=== PATIENT | male | born 1950 | race Two or more races ===

== ENCOUNTER → 2024-04-05 | Outpatient (CLI) | payer MEDICARE, MEDICAID, SELFPAY | END | disposition home or self-care (01) | LOC: SWHD 11:04 | PROVIDERS: PCP Family Medicine; Referring Provider Family Medicine; Visit Provider Student in an Organized Health Care Education/Training Program | DX: I96 Gangrene, not elsewhere classified (principal); S88.011A Complete traumatic amputation at knee level, right lower leg, initial encounter; S91.105A Unspecified open wound of left lesser toe(s) without damage to nail, initial encounter; L89.620 Pressure ulcer of left heel, unstageable; X58.XXXA Exposure to other specified factors, initial encounter; J44.9 Chronic obstructive pulmonary disease, unspecified; R60.0 Localized edema; Z72.0 Tobacco use; I10 Essential (primary) hypertension | CPT/HCPCS: 97597; A9270 ==

== ENCOUNTER 2024-07-20 13:53 | Emergency (ER) | payer MEDICARE, MEDICAID, SELFPAY ==
[2024-07-20 13:54] VITALS: BMI 20.9
[2024-07-20 14:06] VITALS: BP 160/70; PULSE 78; RESP 18; TEMP 36.9; O2SAT 99
--- NOTE | 2024-07-20 14:21 | XR_ITS ---
Examination: Foot, left, 3 views Technique: AP, oblique, lateral views foot, 3 views Date and time of exam: July 20, 2024 1458 hours INDICATIONS: Redness swelling and pain necrosis infection left foot this week FINDINGS: Severe osteopenia No fracture No peterson cortical bone destruction Soft tissue vascular calcification IMPRESSION: No peterson cortical bone destruction Consider MRI foot without contrast follow-up
--- NOTE | 2024-07-20 14:21 | XR_ITS ---
Examination: Duplex scan of the lower extremity, unilateral left complete Date and time of exam: July 20, 2024 1429 hours INDICATIONS: Left foot redness swelling and pain beginning 8 days ago Technique: Duplex scan of the extremity veins using B-mode/grayscale imaging and Doppler spectral analysis and color flow Attention is directed to internal echogenicity, compression and augmentation involving these veins, color flow assessment, spectral analysis Findings: Major deep venous structures in the extremity demonstrate normal course and caliber. There is no evidence of deep vein thrombosis. Normal color flow and spectral analysis Impression: Negative for DVT..
--- NOTE | 2024-07-20 14:22 | PD.EDRME ---
Rapid Medical Screening Exam RME Arrival date/time: 07/20/24 13:53 74-year-old male being followed by vascular specialist presents the emergency department today with complaints of left lower extremity swelling Chief Complaint: Ankle/Foot Injury Time Seen by Provider: 07/20/24 13:56 Vital signs: Vital Signs Temperature 98.5 F 07/20/24 14:06 Pulse Rate 78 07/20/24 14:06 Respiratory Rate 18 07/20/24 14:06 Blood Pressure 160/70 H 07/20/24 14:06 Pulse Oximetry (%) 99 07/20/24 14:06 Oxygen Delivery Method Room Air 07/20/24 14:06
[2024-07-20 14:33] LABS: Lactate (Lactic Acid) 1.1 mMol/L (0.4-2.0)
[2024-07-20 14:36] LABS: Basophils # (Auto) 0.1 Thou/mm3 (0.0-0.2); Basophils % (Auto) 1 % (0-2.5); Eosinophils # (Auto) 0.3 Thou/mm3 (0.0-0.5); Eosinophils % (Auto) 2 % (0-10); Hematocrit 37.5 % (41.0-53.0); Hemoglobin 12.7 g/dL (13.5-16.0); Immature Granulocytes % (Auto) 0 % (0-0); Immature Granulocytes Auto 0.04 Thou/mm3 (0.00-0.00); Lymphocytes # (Auto) 3.1 Thou/mm3 (1.0-4.8); Lymphocytes % (Auto) 24 % (10-50); Mean Corpuscular HGB Conc 33.9 g/dl (31.0-37.0); Mean Corpuscular Hemoglobin 30.2 pg (25.0-35.0); Mean Corpuscular Volume 89 fL (80-100); Monocytes # (Auto) 0.9 Thou/mm3 (0.0-0.8); Monocytes % (Auto) 7 % (0-12); Neutrophils # (Auto) 8.4 Thou/mm3 (1.8-7.7); Neutrophils % (Auto) 66 % (37-80); Nucleated Red Blood Cell % 0 /100 WBC (0); Platelet Count 274 Thou/mm3 (140-440); RDW Standard Deviation 44.2 fL (35.1-43.9); White Blood Count 12.8 Thou/mm3 (3.8-10.6)
[2024-07-20 14:48] LABS: Partial Thromboplastin Time 28.4 Seconds (22.0-36.0); Prothrombin Time 11.2 Seconds (9.0-12.2)
[2024-07-20 15:02] LABS: Alanine Aminotransferase 8 U/L (10-49); Albumin/Globulin Ratio 1.5 (1.2-2.2); Alkaline Phosphatase 166 U/L (46-116); Anion Gap 7 (7-16); Aspartate Amino Transferase 13 U/L (0-34); BUN/Creatinine Ratio 19 Ratio (12-20); Bilirubin,Total 0.8 mg/dL (0.3-1.2); Blood Urea Nitrogen 15 mg/dL (9-23); C-Reactive Protein 1.7 mg/dL (0.0-0.9); Calcium 10.2 mg/dL (8.3-10.6); Calcium (Corrected) 10.2 mg/dL (8.5-10.1); Carbon Dioxide 28.8 mMol/L (20.0-31.0); Chloride 98 mMol/L (98-107); Creatinine (Component) 0.8 mg/dL (0.6-1.3); Estimated Creatinine Clearance 67.6 mL/min (>60); Globulin 3.4 gm/dL (2.3-3.5); Glucose 104 mg/dL (74-106); Osmolality,Calculated 269 (275-295); Potassium 4.1 mMol/L (3.4-5.1); Procalcitonin < 0.04 ng/ml (0.0-0.49); Sodium 134 mMol/L (136-145); Total Protein 8.4 gm/dL (5.7-8.2); eGFR > 60 See Note
[2024-07-20 15:40] LABS: Sed Rate (ESR) 48 mm/hr (0-20)
[2024-07-20 16:56] VITALS: BP 166/70; PULSE 65; RESP 20; TEMP 36.7; O2SAT 98
--- NOTE | 2024-07-20 17:03 | PD.EDADULT ---
ED General RME/HPI General Chief complaint: Ankle/Foot Injury Stated complaint: foot swelling, left x 2 Time Seen by Provider: 07/20/24 13:56 Arrival date/time: 07/20/24 13:53 CC: Red painful swollen foot HPI ongoing for the past 2 days. The patient is a known diabetic. RME / HPI RME / HPI narrative: 07/20/24 13:53 74-year-old male being followed by vascular specialist presents the emergency department today with complaints of left lower extremity swelling Related Data Home Medications ?Medication ?Instructions ?Recorded ?Confirmed amlodipine 10 mg tablet 10 mg PO QDAY 08/27/23 08/27/23 aspirin 81 mg capsule 81 mg PO QDAY 08/27/23 08/27/23 folic acid 1 mg tablet 1 mg PO QDAY 08/27/23 08/27/23 sodium chloride 1,000 mg soluble 1,000 mg PO BID 08/27/23 08/27/23 tablet Previous Rx's ?Medication ?Instructions ?Recorded cephalexin 500 mg capsule 500 mg PO Q8H #20 caps 08/28/23 sulfamethoxazole 800 1 tab PO BID PRN Left foot 07/20/24 mg-trimethoprim 160 mg tablet cellulitis 7 days #14 tabs (Bactrim DS) Allergies Allergy/AdvReac Type Severity Reaction Status Date / Time No Known Allergies Allergy Verified 09/11/23 10:32 ED Exam Narrative Physical exam: [General: Thin and frail, appears not in any acute distress Head normocephalic HEENT: Within acceptable limits Neck is supple nontender Chest equal chest rise nontender to palpation Respiratory: Clear to auscultation no wheezes crackles or rubs CV: Rate rhythm is regular no murmurs rubs or clicks Abdomen is soft nontender, positive bowel sounds all 4 quadrants Back: No CVA tenderness no spinous process tenderness from cervical spine thoracic and lumbar spine Skin: Intact no petechiae rash induration ulceration or crepitus Extremities: 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 Left foot, dorsal erythema and edema not warm to touch, edema to all digits 1 through 5, small amount of bruising in the webbing on the sole or side between digits 3 4 and 5. No open lesions appreciated. Moving all other extremities against resistance cap refill less than 2 seconds neurosensory intact Neuro: Awake alert oriented x2, person and place, Glascow coma 15 no focal deficits] Course Quality Measures VTE prophylaxis Orders Category Date Time Status US venous doppler LE LT Stat Exams 07/20/24 14:21 Completed XR foot comp LT min 3V Stat Exams 07/20/24 14:21 Completed Blood Culture (Lab) Stat Lab 07/20/24 14:20 Received CBC Stat Lab 07/20/24 14:20 Completed CRP [C-Reactive Protein] Stat Lab 07/20/24 14:20 Completed Comprehensive Metabolic Panel Stat Lab 07/20/24 14:20 Completed ESR [Sed Rate (ESR)] Stat Lab 07/20/24 14:20 Completed Lactic Acid [Lactate (Lactic Acid)] Stat Lab 07/20/24 14:20 Completed Partial Thromboplastin Time Stat Lab 07/20/24 14:20 Completed Procalcitonin Stat Lab 07/20/24 14:20 Completed Prothrombin Time with INR Stat Lab 07/20/24 14:20 Completed cefTRIAXone [Rocephin] 1,000 mg Med 07/20/24 17:15 Discontinued Lidocaine 1% 20 ml [Xylocaine 1% 20 ML] 2.1 ml IM X1 Vital Signs Vital signs: Vital Signs Temperature 98.5 F 07/20/24 14:06 Pulse Rate 78 07/20/24 14:06 Respiratory Rate 18 07/20/24 14:06 Blood Pressure 160/70 H 07/20/24 14:06 Pulse Oximetry (%) 99 07/20/24 14:06 Oxygen Delivery Method Room Air 07/20/24 14:06 [facility] Patient data External records reviewed:: [facility] previous records Clinical information provided by:: patient Social determinants that could affect healthcare access:: none Patient has the following chronic illnesses:: None How is presenting disease/condition affected by chronic disease/condition?: uneffected by Evaluation data The following diagnostics were reviewed and interpreted by me:: lab results and radiology exam(s) Lab and/or radiology exams considered but not ordered:: CBC shows a mild leukocytosis of 12.7 with stable anemia, no thrombocytopenia Coags within acceptable limits CMP shows a no significant electrolyte imbalances renal impairment transaminitis or T. bili elevation Calcium at 10.2 C-reactive protein at 1.7 Foot x-ray shows no peterson cortical destruction of the foot. Lactic acid is negative Ultrasound is negative for DVT in the left leg Interpretation Summary: Cellulitis of the foot patient will be discharged home after an injection of Rocephin to go on 1 week of antibiotics and follow-up promptly. Medications Medications considered but not ordered:: None none Medication administrations:: Medication Administration History Discontinued Medications Ceftriaxone Sodium 1,000 mg/ (Lidocaine HCl 2.1 ml) 0 mg IM X1 ONE Stop: 07/20/24 17:16 Last Admin: 07/20/24 17:21 Dose: 2.1 mg Documented By: OA None Consultations Consultation(s) initiated? (list below): No Diagnosis Differential Diagnosis ED Complaint MDM: Cellulitis osteomyelitis abscess Most likely diagnosis given after review of the tests above:: Left foot cellulitis Admission Indicated Admission indicated?: not indicated Explain why admission is indicated or not indicated:: Stable for outpatient with close follow-up Admission Request Was there a request for admission?: No Disposition Plan Disposition Plan: Discharge Discharge Attestation Discharge Attestation: The patient and all family members were given an opportunity to ask questions and understood the discharge instructions. Discharge instructions specifically effects, indications for sooner follow up or return to the emergency department, and the expected course of current diagnosis. Patient condition: Stable Medical Decision Making Differential Diagnosis Differential Diagnosis: Cellulitis osteomyelitis abscess Lab Data 07/20/24 14:20 07/20/24 14:20 Labs: Lab Results 07/20/24 Range/Units 14:20 WBC 12.8 H (3.8-10.6) Thou/mm3 RBC 4.20 L (4.50-5.90) Miln/mm3 Hgb 12.7 L (13.5-16.0) g/dL Hct 37.5 L (41.0-53.0) % MCV 89 (80-100) fL MCH 30.2 (25.0-35.0) pg MCHC 33.9 (31.0-37.0) g/dl RDW Std Deviation 44.2 H (35.1-43.9) fL Plt Count 274 (140-440) Thou/mm3 Neut % (Auto) 66 (37-80) % Lymph % (Auto) 24 (10-50) % [place] % (Auto) 7 (0-12) % Eos % (Auto) 2 (0-10) % Baso % (Auto) 1 (0-2.5) % Neut # (Auto) 8.4 H (1.8-7.7) Thou/mm3 Lymph # (Auto) 3.1 (1.0-4.8) Thou/mm3 [place] # (Auto) 0.9 H (0.0-0.8) Thou/mm3 Eos # (Auto) 0.3 (0.0-0.5) Thou/mm3 Baso # (Auto) 0.1 (0.0-0.2) Thou/mm3 Immature Gran # (Auto) 0.04 H (0.00-0.00) Thou/mm3 Absolute Nucleated RBC 0.00 (0.00-0.00) Thou/mm3 Immature Gran % 0 (0-0) % Nucleated RBC % 0 (0) /100 WBC ESR 48 H (0-20) mm/hr PT 11.2 (9.0-12.2) Seconds INR 1.0 (0.9-1.3) APTT 28.4 (22.0-36.0) Seconds Sodium 134 L (136-145) mMol/L Potassium 4.1 (3.4-5.1) mMol/L Chloride 98 (98-107) mMol/L Carbon Dioxide 28.8 (20.0-31.0) mMol/L Anion Gap 7 (7-16) BUN 15 (9-23) mg/dL Creatinine 0.8 (0.6-1.3) mg/dL Estim Creat Clear Calc 67.6 (>60) mL/min eGFR > 60 (60 - ) See Note BUN/Creatinine Ratio 19 (12-20) Ratio Glucose 104 (74-106) mg/dL Calculated Osmolality 269 L (275-295) Lactic Acid 1.1 (0.4-2.0) mMol/L Calcium 10.2 (8.3-10.6) mg/dL Corrected Calcium 10.2 H (8.5-10.1) mg/dL Total Bilirubin 0.8 (0.3-1.2) mg/dL AST 13 (0-34) U/L ALT 8 L (10-49) U/L Alkaline Phosphatase 166 H (46-116) U/L C-Reactive Prot, Quant 1.7 H (0.0-0.9) mg/dL Total Protein 8.4 H (5.7-8.2) gm/dL Albumin 5.0 H (3.4-4.8) gm/dL Globulin 3.4 (2.3-3.5) gm/dL Albumin/Globulin Ratio 1.5 (1.2-2.2) Procalcitonin < 0.04 (0.0-0.49) ng/ml Discharge Plan Plan Patient Disposition: HOME (Self Care) Patient condition on transfer: Stable Prescriptions/Referrals Prescriptions/Med Rec: New sulfamethoxazole-trimethoprim [Bactrim DS] 800-160 mg tablet 1 tab PO BID PRN (Reason: Left foot cellulitis) 7 Days Qty: 14 0RF No Action amlodipine 10 mg Tablet 10 mg PO QDAY folic acid 1 mg Tablet 1 mg PO QDAY sodium chloride 1,000 mg tablet,soluble 1,000 mg PO BID Patient Comments: TOME ELISHA TABLETA POR V A ORAL DOS VECES AL D A FOR 14 DAYS aspirin 81 mg Capsule 81 mg PO QDAY cephalexin 500 mg capsule 500 mg PO Q8H Qty: 20 0RF Referrals: Nadeem Delgado MD [Primary Care Provider] - In 1 week Problem List Clinical Impression: Cellulitis of foot, left Patient/Caregiver Discharge Instructions Education Materials: Discharge Instructions for Cellulitis Additional Instructions: Follow-up with the regular doctor in 5 to 7 days if there is worsening of symptoms in 3-4 return immediately to the emergency room for reevaluation. If no doctor available in 5-7 return to emergency room for reevaluation. Print Language: Lao Stand Alone Forms: Savi Award Info., Patient Portal Info Letter PA/NATALIIA Supervising Physician RACHID/NATALIIA Supervising Physician: Anthony Roberts ENP
[2024-07-20] MEDS: cefTRIAXone 1,000 MG, LIDOCAINE 1% 20 ML 2.1 ML IM (17:21)
== END 2024-07-20 18:06 | disposition home or self-care (01) ==
PROVIDERS: Nurse Practitioner Primary Care; Emergency Provider Emergency Medicine; PCP Family Medicine
DX: L03.116 Cellulitis of left lower limb (principal); M79.89 Other specified soft tissue disorders
CPT/HCPCS: 36415; 73630; 80053; 83605; 84145; 85025; 85610; 85652; 85730; 86140; 87040; 87077; 87186; 93971; 96372; 99284; J0696; J3490

== ENCOUNTER 2024-07-24 12:20 | Emergency (ER) | payer MEDICARE, MEDICAID, SELFPAY ==
[2024-07-24 13:38] VITALS: BP 155/72; PULSE 71; RESP 18; TEMP 36.8; O2SAT 96
--- NOTE | 2024-07-24 13:55 | XR_ITS ---
Examination: Foot, left, 3 views Technique: AP, oblique, lateral views foot, 3 views Date and time of exam: Hours Indications: Redness swelling and pain involving the foot Findings: Severe osteopenia No fracture Soft tissue swelling dorsum of the foot No peterson cortical bone destruction No foreign body Impression: No peterson cortical bone destruction Consider MRI foot without contrast follow-up
--- NOTE | 2024-07-24 13:56 | PD.EDRME ---
Rapid Medical Screening Exam RME Arrival date/time: 07/24/24 12:20 This is a 74-year-old male that comes in with complaints of left foot pain. Patient was seen here on July 20, 2024. At that time patient had been diagnosed with cellulitis to his left foot. Per patient the foot actually looks better is not as swollen. It still hurts patient but it does not hurt as much per patient. Per patient's family member wound looks worse and more swollen. Patient's family member also states that he has been having a lot of pain. Patient has had prior amputations to the right leg. Patient has a history of high blood pressure and diabetes. I have greeted and performed a focused initial assessment of this patient. Initial appropriate labs ordered at this time. A comprehensive ED assessment and evaluation of the patient and analysis of all test and completion of medical decision making process will be conducted by additional ED provider. Chief Complaint: Ankle/Foot Injury Time Seen by Provider: 07/24/24 13:42 Vital signs: Vital Signs Temperature 98.2 F 07/24/24 13:38 Pulse Rate 71 07/24/24 13:38 Respiratory Rate 18 07/24/24 13:38 Blood Pressure 155/72 H 07/24/24 13:38 Pulse Oximetry (%) 96 07/24/24 13:38 Oxygen Delivery Method Room Air 07/24/24 13:38
[2024-07-24 14:31] LABS: Lactate (Lactic Acid) 1.5 mMol/L (0.4-2.0)
[2024-07-24 14:34] LABS: Basophils # (Auto) 0.1 Thou/mm3 (0.0-0.2); Basophils % (Auto) 1 % (0-2.5); Eosinophils # (Auto) 0.2 Thou/mm3 (0.0-0.5); Eosinophils % (Auto) 2 % (0-10); Hematocrit 35.4 % (41.0-53.0); Hemoglobin 11.8 g/dL (13.5-16.0); Immature Granulocytes % (Auto) 0 % (0-0); Immature Granulocytes Auto 0.03 Thou/mm3 (0.00-0.00); Lymphocytes # (Auto) 2.4 Thou/mm3 (1.0-4.8); Lymphocytes % (Auto) 20 % (10-50); Mean Corpuscular HGB Conc 33.3 g/dl (31.0-37.0); Mean Corpuscular Hemoglobin 30.4 pg (25.0-35.0); Mean Corpuscular Volume 91 fL (80-100); Monocytes % (Auto) 8 % (0-12); Neutrophils # (Auto) 8.2 Thou/mm3 (1.8-7.7); Neutrophils % (Auto) 69 % (37-80); Nucleated Red Blood Cell % 0 /100 WBC (0); Platelet Count 245 Thou/mm3 (140-440); RDW Standard Deviation 43.5 fL (35.1-43.9); Red Blood Count 3.88 Miln/mm3 (4.50-5.90); White Blood Count 11.9 Thou/mm3 (3.8-10.6)
[2024-07-24 15:04] LABS: Alanine Aminotransferase < 7 U/L (10-49); Albumin, Serum 4.9 gm/dL (3.4-4.8); Albumin/Globulin Ratio 1.4 (1.2-2.2); Alkaline Phosphatase 171 U/L (46-116); Anion Gap 9 (7-16); Aspartate Amino Transferase 17 U/L (0-34); BUN/Creatinine Ratio 13 Ratio (12-20); Bilirubin,Total 0.4 mg/dL (0.3-1.2); Blood Urea Nitrogen 12 mg/dL (9-23); Calcium 9.6 mg/dL (8.3-10.6); Calcium (Corrected) 9.6 mg/dL (8.5-10.1); Carbon Dioxide 25.3 mMol/L (20.0-31.0); Chloride 98 mMol/L (98-107); Creatinine (Component) 0.9 mg/dL (0.6-1.3); Globulin 3.4 gm/dL (2.3-3.5); Glucose 104 mg/dL (74-106); Osmolality,Calculated 264 (275-295); Potassium 4.3 mMol/L (3.4-5.1); Procalcitonin < 0.04 ng/ml (0.0-0.49); Sodium 132 mMol/L (136-145); Total Protein 8.3 gm/dL (5.7-8.2); eGFR > 60 See Note
[2024-07-24 17:01] VITALS: BP 151/84; PULSE 66; RESP 18; TEMP 37.1; O2SAT 96
--- NOTE | 2024-07-24 17:20 | PD.EDADULT ---
ED General RME/HPI General Chief complaint: Ankle/Foot Injury Stated complaint: LEFT FOOT SWELLING RECHECK Time Seen by Provider: 07/24/24 13:42 Arrival date/time: 07/24/24 12:20 CC: Left foot pain HPI progressive worsening, the patient was seen here several weeks ago for the same complaint that time the foot was bright red and edematous today it is burgundy red and edematous. Family member at bedside states the patient's pain goes away with pain medications but returns when the pain medicines wear off. Patient has no fever denies any other symptoms. Family member at bedside states the patient has a scheduled appointment at the vascular surgeon 05 August. RME / HPI RME / HPI narrative: 07/24/24 12:20 This is a 74-year-old male that comes in with complaints of left foot pain. Patient was seen here on July 20, 2024. At that time patient had been diagnosed with cellulitis to his left foot. Per patient the foot actually looks better is not as swollen. It still hurts patient but it does not hurt as much per patient. Per patient's family member wound looks worse and more swollen. Patient's family member also states that he has been having a lot of pain. Patient has had prior amputations to the right leg. Patient has a history of high blood pressure and diabetes. I have greeted and performed a focused initial assessment of this patient. Initial appropriate labs ordered at this time. A comprehensive ED assessment and evaluation of the patient and analysis of all test and completion of medical decision making process will be conducted by additional ED provider. Related Data Home Medications ?Medication ?Instructions ?Recorded ?Confirmed amlodipine 10 mg tablet 10 mg PO QDAY 08/27/23 08/27/23 aspirin 81 mg capsule 81 mg PO QDAY 08/27/23 08/27/23 folic acid 1 mg tablet 1 mg PO QDAY 08/27/23 08/27/23 sodium chloride 1,000 mg soluble 1,000 mg PO BID 08/27/23 08/27/23 tablet Previous Rx's ?Medication ?Instructions ?Recorded cephalexin 500 mg capsule 500 mg PO Q8H #20 caps 08/28/23 sulfamethoxazole 800 1 tab PO BID PRN Left foot 07/20/24 mg-trimethoprim 160 mg tablet cellulitis 7 days #14 tabs (Bactrim DS) Allergies Allergy/AdvReac Type Severity Reaction Status Date / Time No Known Allergies Allergy Verified 07/24/24 12:25 Review of Systems Review of Systems Narrative Review of Systems: GEN: No fever, no chills, no weight loss EYES: No discharge, no visual changes, no pain HEENT: No ear pain, no congestion, no sore throat PULM: No shortness of breath, no cough, no congestion CV: No chest pain, no dyspnea on exertion, no palpitations GI: No nausea, no vomiting, no diarrhea, no pain, no constipation : No frequency, no urgency, no dysuria MUSC/SKEL: No joint pain, no back pain SKIN: No rash PSYCH: No hallucinations, no depression HEME/LYMPH: No easy bleeding or bruising tendencies NEURO: No weakness, no headache Course Quality Measures VTE prophylaxis Orders Category Date Time Status XR foot comp LT min 3V Stat Exams 07/24/24 13:55 Completed CBC Stat Lab 07/24/24 14:24 Completed CRP [C-Reactive Protein] Stat Lab 07/24/24 14:24 Completed Comprehensive Metabolic Panel Stat Lab 07/24/24 14:24 Completed Lactate (Lactic Acid) Stat Lab 07/24/24 14:24 Completed Procalcitonin Stat Lab 07/24/24 14:24 Completed Vital Signs Vital signs: Vital Signs Temperature 98.2 F 07/24/24 13:38 Pulse Rate 71 07/24/24 13:38 Respiratory Rate 18 07/24/24 13:38 Blood Pressure 155/72 H 07/24/24 13:38 Pulse Oximetry (%) 96 07/24/24 13:38 Oxygen Delivery Method Room Air 07/24/24 13:38 [facility] Patient data External records reviewed:: [facility] previous records Clinical information provided by:: patient Social determinants that could affect healthcare access:: none Patient has the following chronic illnesses:: Diabetes right BKA How is presenting disease/condition affected by chronic disease/condition?: exacerbated by Evaluation data The following diagnostics were reviewed and interpreted by me:: lab results, radiology exam(s) and EKG tracing(s) Lab and/or radiology exams considered but not ordered:: CBC shows no leukocytosis anemia thrombocytopenia CMP shows elevated blood glucose level no other electrolyte imbalances renal impairment transaminitis or T. bili elevation X-ray shows no peterson cortical destruction of the foot is interpreted by me read by radiology Interpretation Summary: Arterial insufficiency of the foot Medications Medications considered but not ordered:: None Medication administrations:: None Consultations Consultation(s) initiated? (list below): No Diagnosis Differential Diagnosis ED Complaint MDM: Arterial insufficiency foot cellulitis foot abscess Most likely diagnosis given after review of the tests above:: Arterial insufficiency of the foot Admission Indicated Admission indicated?: not indicated Explain why admission is indicated or not indicated:: Stable for outpatient follow-up with vascular surgeon Admission Request Was there a request for admission?: No Disposition Plan Disposition Plan: Discharge Discharge Attestation Discharge Attestation: The patient and all family members were given an opportunity to ask questions and understood the discharge instructions. Discharge instructions specifically effects, indications for sooner follow up or return to the emergency department, and the expected course of current diagnosis. Patient condition: Stable Medical Decision Making Differential Diagnosis Differential Diagnosis: Arterial insufficiency foot cellulitis foot abscess Lab Data 07/24/24 14:24 07/24/24 14:24 Labs: Lab Results 07/24/24 Range/Units 14:24 WBC 11.9 H (3.8-10.6) Thou/mm3 RBC 3.88 L (4.50-5.90) Miln/mm3 Hgb 11.8 L (13.5-16.0) g/dL Hct 35.4 L (41.0-53.0) % MCV 91 (80-100) fL MCH 30.4 (25.0-35.0) pg MCHC 33.3 (31.0-37.0) g/dl RDW Std Deviation 43.5 (35.1-43.9) fL Plt Count 245 (140-440) Thou/mm3 Neut % (Auto) 69 (37-80) % Lymph % (Auto) 20 (10-50) % [place] % (Auto) 8 (0-12) % Eos % (Auto) 2 (0-10) % Baso % (Auto) 1 (0-2.5) % Neut # (Auto) 8.2 H (1.8-7.7) Thou/mm3 Lymph # (Auto) 2.4 (1.0-4.8) Thou/mm3 [place] # (Auto) 1.0 H (0.0-0.8) Thou/mm3 Eos # (Auto) 0.2 (0.0-0.5) Thou/mm3 Baso # (Auto) 0.1 (0.0-0.2) Thou/mm3 Immature Gran # (Auto) 0.03 H (0.00-0.00) Thou/mm3 Absolute Nucleated RBC 0.00 (0.00-0.00) Thou/mm3 Immature Gran % 0 (0-0) % Nucleated RBC % 0 (0) /100 WBC Sodium 132 L (136-145) mMol/L Potassium 4.3 (3.4-5.1) mMol/L Chloride 98 (98-107) mMol/L Carbon Dioxide 25.3 (20.0-31.0) mMol/L Anion Gap 9 (7-16) BUN 12 (9-23) mg/dL Creatinine 0.9 (0.6-1.3) mg/dL Estim Creat Clear Calc Not Performed. eGFR > 60 (60 - ) See Note BUN/Creatinine Ratio 13 (12-20) Ratio Glucose 104 (74-106) mg/dL Calculated Osmolality 264 L (275-295) Lactic Acid 1.5 (0.4-2.0) mMol/L Calcium 9.6 (8.3-10.6) mg/dL Corrected Calcium 9.6 (8.5-10.1) mg/dL Total Bilirubin 0.4 (0.3-1.2) mg/dL AST 17 (0-34) U/L ALT < 7 L (10-49) U/L Alkaline Phosphatase 171 H (46-116) U/L C-Reactive Prot, Quant 3.0 H (0.0-0.9) mg/dL Total Protein 8.3 H (5.7-8.2) gm/dL Albumin 4.9 H (3.4-4.8) gm/dL Globulin 3.4 (2.3-3.5) gm/dL Albumin/Globulin Ratio 1.4 (1.2-2.2) Procalcitonin < 0.04 (0.0-0.49) ng/ml Discharge Plan Plan Patient Disposition: HOME (Self Care) Patient condition on transfer: Stable Prescriptions/Referrals Prescriptions/Med Rec: No Action amlodipine 10 mg Tablet 10 mg PO QDAY folic acid 1 mg Tablet 1 mg PO QDAY sodium chloride 1,000 mg tablet,soluble 1,000 mg PO BID Patient Comments: TOME ELISHA TABLETA POR V A ORAL DOS VECES AL D A FOR 14 DAYS aspirin 81 mg Capsule 81 mg PO QDAY cephalexin 500 mg capsule 500 mg PO Q8H Qty: 20 0RF sulfamethoxazole-trimethoprim [Bactrim DS] 800-160 mg tablet 1 tab PO BID PRN (Reason: Left foot cellulitis) 7 Days Qty: 14 0RF Referrals: Garfield Balbuena MD [Primary Care Provider] - In 1 week Problem List Clinical Impression: Edema of left foot Patient/Caregiver Discharge Instructions Additional Instructions: Follow-up with vascular surgeon if there is a worsening of symptoms in the interim return to the emergency room for reevaluation. Print Language: Algerian Stand Alone Forms: Savi Award Info., Work/School Release, Patient Portal Info Letter PA/NATALIIA Supervising Physician RACHID/NATALIIA Supervising Physician: Anthony Roberts ENP
== END 2024-07-24 17:45 | disposition home or self-care (01) ==
PROVIDERS: Nurse Practitioner Family; Emergency Provider Emergency Medicine; PCP Family Medicine
DX: R60.0 Localized edema (principal)
CPT/HCPCS: 36415; 73630; 80053; 83605; 84145; 85025; 86140; 99283

== ENCOUNTER 2025-02-21 13:00 | Outpatient (RCR) | payer MEDICARE, MEDICAID, SELFPAY ==
--- NOTE | 2025-02-07 11:09 | PT.OIERPT ---
PT OP Initial Eval Patient Information Outpatient Physical Therapy Treatment Date: 02/07/25 Visit Reasons: Bilateral BKA prothesis use Medical Diagnosis: Z89.512 Treatment Dx #1: Decreased transfers Treatment Dx #2: Gait impairment Start of Care: 02/07/25 Date of Onset: 8 weeks ago Smoking Status Smoking Status: Former smoker Initial Assessment Subjective: Pt is 74 yr old german speaking male s/p B below knee amputations presents in a W/C with son and dtr who are helping with the Hx. Pt doesn't use the prosthetic legs due to L residual limb pain and sits it the W/C most of the time. He transfers without a slide board from the W/C to table. PLOF: pt was ambulating prior to amputations. PMH: DM, hyponatremia, gangrene, B amputations Pt goal: not sure, to walk with prosthetics Objective: B knee AROM: Extension: -20 deg flexion contractures Flexion: 90 deg Hip extension: -15 deg B, flexion contractures Transfers: MinAx2 from W/C to mat table with B prosthetetic legs Gait: min/modAx1 with gait belt with decreased knee extension and WB tolerance B Don/doff prosthesis: requires assist Assessment: Pt presents with flexion contractures of B knees and hips due to sitting in W/C. He can stand and ambulate with B prosthetic legs withhand support on parallel bars with assist but knee and hip flexion contractures limit erect standing. Pt requires skilled therapy to meet goals and has fair rehab potential. Short Term and [employer] Goals 1. Ind with HEP 2. Improved B knee and hip extension to full 3. Transfer from sit to stand and W/C to mat table with minAx1 4. Don/doff prostetic legs independently Treatment Plan 1. Therex 2. Gait training 3. Neuromuscular reeducation 4. Therapeutic activities Frequency and Duration: 1-2x a week for 12 sessions plus the evaluation Certification Dates: 02/07/25 to 05/08/25 Procedure Charges OP PT Eval Mod Complex 30 minutes: Yes
--- NOTE | 2025-02-21 14:29 | PT.ODAYNRPT ---
PT Outpatient Daily Note OP Daily Note Outpatient Physical Therapy Treatment Date: 02/21/25 Visit Reasons: Bilateral BKA prothesis use Subjective: Pt c/o L residual limb pain when he stands up and the socks sweat Objective: See F/S for therex Gait training: ambulate in parallel bars with modAx2 x13' Assessment: Pt required modAx2 to stand up to begin Rx but required less as time went on. He has hip and knee flexion contractures which limit erect standing and he was encouraged to lay prone at home to stretch. He has decreased WB tolerance of L LE due to residual limb sensitivity and pain. Plan: Continue per POC Length of Time (minutes) of Treatment: 30 Minutes Procedure Charges Gait Training 15 minutes: Yes Therapeutic Exercise 15 minutes: Yes
== END 2025-03-02 23:59 | disposition home or self-care (01) ==
LOC: CPTX 13:00
PROVIDERS: PCP Nurse Practitioner Family; Referring Provider Nurse Practitioner Family; Visit Provider Nurse Practitioner Family
DX: R26.89 Other abnormalities of gait and mobility (principal); M24.562 Contracture, left knee; M24.561 Contracture, right knee; M24.552 Contracture, left hip; M24.551 Contracture, right hip; Z89.512 Acquired absence of left leg below knee; Z89.511 Acquired absence of right leg below knee; E11.9 Type 2 diabetes mellitus without complications
CPT/HCPCS: 97110; 97116; 97162

== ENCOUNTER 2025-03-28 16:30 | Outpatient (RCR) | payer MEDICARE, MEDICAID, SELFPAY ==
--- NOTE | 2025-03-06 12:59 | PT.ODAYNRPT ---
PT Outpatient Daily Note OP Daily Note Outpatient Physical Therapy Treatment Date: 03/06/25 Visit Reasons: Bilateral BKA prosthesis use Subjective: Pt c/o L residual limb pain when he stands up and that the L prosthesis doesn't support him well. Objective: See F/S for therex Gait training: ambulate in parallel bars with minAx1 and gait belt x15' Assessment: Pt required less assist to stand up today in the parallel bars. He has hip and knee flexion contractures which limit erect standing and he was encouraged to lay prone at home to stretch. He has decreased WB tolerance of L LE due to residual limb sensitivity and pain. Plan: Continue per POC Length of Time (minutes) of Treatment: 30 Minutes Procedure Charges Gait Training 15 minutes: Yes Therapeutic Exercise 15 minutes: Yes
--- NOTE | 2025-03-09 18:08 | PT.ODAYNRPT ---
PT Outpatient Daily Note OP Daily Note Outpatient Physical Therapy Treatment Date: 03/09/25 Visit Reasons: Bilateral BKA prosthesis use Subjective: Pt c/o L residual limb pain when he stands up and that the L prosthesis doesn't support him well. Objective: See F/S for therex Gait training: ambulate in parallel bars with minAx1 and gait belt x15' Assessment: Pt required less assist to stand up today in the parallel bars. He has hip and knee flexion contractures which limit erect standing and he was encouraged to lay prone at home to stretch. He has decreased WB tolerance of L LE due to residual limb sensitivity and pain. Plan: Continue per POC Length of Time (minutes) of Treatment: 30 Minutes Procedure Charges Gait Training 15 minutes: Yes Therapeutic Exercise 15 minutes: Yes
--- NOTE | 2025-03-14 17:36 | PT.ODAYNRPT ---
PT Outpatient Daily Note OP Daily Note Outpatient Physical Therapy Treatment Date: 03/14/25 Visit Reasons: Bilateral BKA prosthesis use Subjective: Pt c/o L residual limb pain when he stands up and that the L prosthesis doesn't support him well. Objective: See F/S for therex Gait training: ambulate in parallel bars with minAx1 and gait belt x4 laps Assessment: Pt required less assist to stand up today in the parallel bars. He has hip and knee flexion contractures which limit erect standing and he was encouraged to lay prone at home to stretch. He has decreased WB tolerance of L LE due to residual limb sensitivity and pain. Wasn't able to use the FWW in the bars since he didn't feel confident. Plan: Continue per POC Length of Time (minutes) of Treatment: 30 Minutes Procedure Charges Gait Training 15 minutes: Yes Therapeutic Exercise 15 minutes: Yes
--- NOTE | 2025-03-23 17:53 | PT.ODAYNRPT ---
PT Outpatient Daily Note OP Daily Note Outpatient Physical Therapy Treatment Date: 03/23/25 Visit Reasons: Bilateral BKA prosthesis use Subjective: Pt c/o L residual limb pain when he stands up and that the L prosthesis doesn't support him well. Objective: See F/S for therex Gait training: ambulate in parallel bars with minAx1 and gait belt x4 laps STS with hands on the bars: x5 MT: [place] tape to R residual limb x5' Assessment: Pt required less assist to stand up today in the parallel bars. He has hip and knee flexion contractures which limit erect standing and he was encouraged to lay prone at home to stretch. He has decreased WB tolerance of L LE due to residual limb sensitivity and pain. Plan: Continue per POC Length of Time (minutes) of Treatment: 30 Minutes Procedure Charges Gait Training 15 minutes: Yes Therapeutic Exercise 15 minutes: Yes
--- NOTE | 2025-03-28 17:30 | PTNOTE_ITS ---
PT OP Progress/Discharge Note Date of Service: 03/28/25 Progress Note/DC Note Progress Note/Discharge Note: Progress Note Patient Information Visit Reasons: Bilateral BKA prosthesis use Service Continue Service or Discharge: Continue Service Status Subjective: Pt c/o L residual limb pain when he stands up and that the L prosthesis doesn't support him well. Objective: See F/S for therex Gait training: ambulate in parallel bars with minAx1 and gait belt x4 laps STS with hands on the bars: x5 B knee AROM: Extension: -16 deg B Assessment: Pt has attended the eval and 6 Rx sessions with slow progress with therapy goal s. He ambulates with heavy reliance on hands with feet out front of him and he doesn't stand over his base of support. Pt required less assist to stand up today in the parallel bars. He has hip and knee flexion contractures which limit erect standing and he was encouraged to lay prone at home to stretch. He has decreased WB tolerance of L LE due to residual limb sensitivity and pain. Plan: Continue per POC up to 12 sessions Procedure Charges Therapeutic Exercise 30 minutes: Yes
== END 2025-04-02 23:59 | disposition home or self-care (01) ==
LOC: CPTX 16:30
PROVIDERS: PCP Nurse Practitioner Family; Referring Provider Nurse Practitioner Family; Visit Provider Nurse Practitioner Family
DX: M24.562 Contracture, left knee (principal); M24.561 Contracture, right knee; M24.552 Contracture, left hip; M24.551 Contracture, right hip; R26.89 Other abnormalities of gait and mobility; Z89.512 Acquired absence of left leg below knee; Z89.511 Acquired absence of right leg below knee; E11.9 Type 2 diabetes mellitus without complications
CPT/HCPCS: 97110; 97116

== ENCOUNTER 2025-04-25 10:00 | Outpatient (RCR) | payer MEDICARE, MEDICAID, SELFPAY ==
--- NOTE | 2025-04-18 18:01 | PT.ODAYNRPT ---
PT Outpatient Daily Note OP Daily Note Outpatient Physical Therapy Treatment Date: 04/18/25 Visit Reasons: Bilateral prosthesis use Subjective: Pt c/o L residual limb pain when he stands up and that the L prosthesis doesn't support him well. Son says pt isn't standing or walking at home. Objective: See F/S for therex Gait training: ambulate in parallel bars with minAx1 and gait belt x4 laps Assessment: He was able to stand over HARIS in the bars today and cued to move hands fwd first instead of feet. Was able to use the FWW to transfer from W/C to mat table with modAx2 to squat pivot. Plan: Continue per POC Length of Time (minutes) of Treatment: 30 Minutes Procedure Charges Gait Training 15 minutes: Yes Therapeutic Exercise 15 minutes: Yes
--- NOTE | 2025-04-25 12:57 | PT.ODAYNRPT ---
PT Outpatient Daily Note OP Daily Note Outpatient Physical Therapy Treatment Date: 04/25/25 Visit Reasons: Bilateral prosthesis use Subjective: Pt reports he is doing well with c/o of residual limb pain when standing Objective: See F/S for therex performed Gait training: ambulate in parallel bars with minAx1 and gait belt x4 laps Assessment: Improvement with gait sequencing; requiring less vc's and tc's to advance hands prior to stepping forward. Was able to use the FWW to perform a stand pivot transfer from W/C to car with min A and mod vc's/tc's for sequencing of transfer; determined front seat was the best for transfer due to increased space. Plan: Continue with POC Length of Time (minutes) of Treatment: 30 Minutes Procedure Charges Gait Training 15 minutes: Yes Therapeutic Activity 15 minutes: Yes
== END 2025-05-02 23:59 | disposition home or self-care (01) ==
LOC: CPTX 10:00
PROVIDERS: PCP Nurse Practitioner Family; Referring Provider Nurse Practitioner Family; Visit Provider Nurse Practitioner Family
DX: R26.89 Other abnormalities of gait and mobility (principal); M24.562 Contracture, left knee; M24.561 Contracture, right knee; Z89.512 Acquired absence of left leg below knee; Z89.511 Acquired absence of right leg below knee
CPT/HCPCS: 97110; 97116; 97530